=== PATIENT | male | born 1950 | race Caucasian/White ===

== ENCOUNTER 2023-05-09 09:51 | Outpatient (CLI) | payer MEDICARE | END 2023-05-09 09:52 | disposition home or self-care (01) | LOC: CSHULT 09:51 | PROVIDERS: ATTEND Family Medicine | DX: Z13.6 Encounter for screening for cardiovascular disorders (principal) | CPT/HCPCS: 76706 ==

== ENCOUNTER 2023-08-02 10:36 | Emergency (ER) | payer MEDICARE ==
[2023-08-02] MEDS ORDERED: cloNIDine 0.1 MG TAB ONE (11:00)
[2023-08-02] MEDS ORDERED: Metoclopramide HCl 10 MG (2 mL) VIAL ONE (11:13)
== END 2023-08-02 11:49 | disposition home or self-care (01) ==
LOC: CSHERS 10:36
DX: H81.10 Benign paroxysmal vertigo, unspecified ear (principal); E78.00 Pure hypercholesterolemia, unspecified; Z79.899 Other long term (current) drug therapy
CPT/HCPCS: 93005; 96374; J2765